=== PATIENT | female | born 1980 | race African-American/Black ===

== ENCOUNTER 2023-03-20 07:58 | Emergency (ER) | payer BC, OTHER ==
[~2023-03-20] VITALS: Ht 162.6 cm; Wt 150.0 kg
[~2023-03-20 07:58] MED LIST: AMOX500T2; HYDR-1348
[2023-03-20 08:01] VITALS: O2SAT 99
[2023-03-20] MEDS ORDERED: IBUPROFEN 600MG TABLET PO ONE (09:00)
[2023-03-20 12:30] VITALS: BP 174/81; PULSE 74; RESP 18; TEMP 98.7
== END 2023-03-20 14:45 | disposition home or self-care (01) ==
LOC: ER 07:58
DX: M79.602 Pain in left arm (principal); M25.512 Pain in left shoulder; R07.89 Other chest pain; I50.9 Heart failure, unspecified; V49.9XXA Car occupant (driver) (passenger) injured in unspecified traffic accident, initial encounter; Y93.89 Activity, other specified; Y92.89 Other specified places as the place of occurrence of the external cause; Y99.8 Other external cause status; Z88.9 Allergy status to unspecified drugs, medicaments and biological substances; Z88.1 Allergy status to other antibiotic agents
CPT/HCPCS: 71046; 73030; 73060; 73080; 73090; 99284